=== PATIENT | female | born 1955 | race Caucasian/White ===

== ENCOUNTER 2016-10-06 11:50 | Inpatient (IN) ==
--- NOTE | 2016-10-06 08:51 | Discharge Summary ---
<Neisha Lamas Grayson - Last Filed: 10/06/16 08:49> Date of Encounter: 10/06/16 - Discharge Diagnosis (1) Painful orthopaedic hardware Priority: Primary Status: Acute (2) Status post revision of total replacement of right knee Priority: Primary Status: Acute (3) GERD (gastroesophageal reflux disease) Priority: Secondary Status: Acute (4) Anxiety Priority: Secondary Status: Acute Comments: On Klonopin 1mg, chronic pain. - Discharge Medications Home Medications: Aspirin 81 mg PO DAILY 10/06/16 [History] Aspirin Enteric Coated [Aspirin EC] 325 mg PO DAILY #21 tablet. 10/06/16 [Rx] Benztropine [Cogentin] 1 mg PO BID 10/06/16 [History] Chlorpromazine HCl 50 mg PO DAILY 10/06/16 [History] Donepezil [Aricept] 5 mg PO HS 10/06/16 [History] Esomeprazole Magnesium [Nexium] 40 mg PO DAILY 10/06/16 [History] Gabapentin [Neurontin] 400 mg PO QID 10/06/16 [History] Meloxicam 15 mg PO DAILY 10/06/16 [History] OxyCODONE Immed Rel [Roxicodone 5 MG] 5 - 10 mg PO Q6HR PRN #40 tablet 10/06/16 [Rx] Simvastatin [Zocor] 40 mg PO DAILY 10/06/16 [History] Tizanidine HCl [Zanaflex] 4 mg PO QID PRN 10/06/16 [History] lamoTRIgine [Lamotrigine] 200 mg PO DAILY 10/06/16 [History] rOPINIRole [Requip] 1 mg PO HS 10/06/16 [History] risperiDONE [Risperdal] 2 mg PO BID 10/06/16 [History] Allergies/Adverse Reactions: 3 Allergy/AdvReac Type Severity Reaction Status Date / Time Cyclobenzaprine Allergy Hives/ITCHI Verified 10/06/16 12:10 [From Flexeril] NG ketorolac [From Toradol] Allergy Hives/ITCHI Verified 10/06/16 12:10 NG Primary care physician: Lele Adamson - Patient Status Disposition: Transfer Inpatient Rehab Fac Condition: Good - Discharge Instructions Follow Up With: Lele Adamson DO [Primary Care Provider] - - Hospital Course Hospital course: Ms. Kam is a 60 year old female - Time Spent with Patient Total time spent providing and/or coordinating discharge services: <Denny Galvan - Last Filed: 10/08/16 17:24> Date of Encounter: 10/08/16 Time of Encounter: 17:23 - Discharge Diagnosis (1) Loose total knee arthroplasty Priority: Primary Status: Chronic Qualifiers: Encounter type: subsequent encounter Qualified Code(s): T84.038D - Mechanical loosening of other internal prosthetic joint, subsequent encounter; Z96.659 - Presence of unspecified artificial knee joint (2) Painful orthopaedic hardware Priority: Primary Status: Chronic (3) Status post revision of total replacement of right knee Priority: Primary Status: Acute (4) GERD (gastroesophageal reflux disease) Priority: Secondary Status: Chronic Qualifiers: Esophagitis presence: esophagitis presence not specified Qualified Code(s) : K21.9 - Gastro-esophageal reflux disease without esophagitis (5) Anxiety Priority: Secondary Status: Acute (6) Acute blood loss anemia Priority: Primary Status: Acute Primary care physician: Lele Adamson - Patient Status Functional capacity at discharge: uses cane/walker Overall status at discharge: patient is progressing back to baseline - Hospital Course Hospital course: Ms. Kam is a 60 year old female status post revision right total knee. Patient with issues with her anxiety during the hospital stay but overall did well.The patient received 3 units of packed red blood cells for acute blood loss anemia. Discharged in stable condition. Follow-up 1 week - Time Spent with Patient Total time spent providing and/or coordinating discharge services:
[2016-10-06] MEDS ORDERED: *HR* FentaNYL (PF) 100 MCG/2 ML VIAL ONE (11:58)
[2016-10-06] MEDS ORDERED: *HR* Propofol 200 MG/20 ML VIAL IVP ONE (11:58)
[2016-10-06] MEDS ORDERED: *HR* Midazolam HCl 2 MG/2 ML VIAL ONE (11:58)
[2016-10-06] MEDS ORDERED: Lidocaine -MPF 2% 2 ML VIAL ONE (11:58)
[2016-10-06] MEDS ORDERED: CeFAZolin Pre 2,000 MG/100 ML 2,000 MG/100 ML BAG IVPB ONE (12:10)
[2016-10-06] MEDS ORDERED: Albuterol 2.5 MG/3 ML NEBULIZER IH ONE ×2 (12:10→13:28)
[2016-10-06] MEDS ORDERED: Lidocaine -MPF 1% 2 ML VIAL ID ONE (12:10)
--- NOTE | 2016-10-06 12:13 | History & Physical Report ---
Date of Encounter: 10/06/16 Time of Encounter: 12:13 24 Hour HP Update - Instructions Instructions: If the History and Physical is less than 30 days old and was completed prior to A.M. admission and or procedure and has NOT been updated on calendar day of procedure please complete this update prior to performing procedure. - Update Patient reports changes in Medical Condition: No Changes in examination, assessment, or condition: No Changes in Medication: No Preop tests/diagnostics Reviewed: Yes Surgery Remains Indicated: Yes Consent for Planned Operative Procedure(s) Verified: Yes - Pre-Operative Checklist Preoperative Checklist Indicated: No Prophylactic Antibiotic Ordered: Yes Is VTE Prophylaxis Indicated?: Yes
[2016-10-06] MEDS ORDERED: Plasma-Lyte A (PH 7.4) 1,000 ML IVC SCH ×2 (12:15→13:30)
[2016-10-06] MEDS ORDERED: Bupivacaine/Clonidine Syringe 1 EACH SYRINGE ONE (12:52)
--- NOTE | 2016-10-06 12:55 | Anesthesia Evaluation PreOp ---
Date of Encounter: 10/06/16 Time of Encounter: 12:52 - Past History Planned Operation: Right total knee revision Cardiac History: Denies any Significant Hx Pulmonary History: Smoker, COPD TOOL SETTER History: Other (anxiety, traumatic brain injury) Other Medical History: GERD Anesthesia History: No Prior Anesthetic Complications Alcohol Use: none Drug use: none Medications and Allergies Aspirin 81 mg PO DAILY 10/06/16 [History] Aspirin Enteric Coated [Aspirin EC] 325 mg PO DAILY #21 tablet.dr 10/06/16 [Rx] Benztropine [Cogentin] 1 mg PO BID 10/06/16 [History] Chlorpromazine HCl 50 mg PO DAILY 10/06/16 [History] Donepezil [Aricept] 5 mg PO HS 10/06/16 [History] Esomeprazole Magnesium [Nexium] 40 mg PO DAILY 10/06/16 [History] Gabapentin [Neurontin] 400 mg PO QID 10/06/16 [History] Meloxicam [Meloxicam] 15 mg PO DAILY 10/06/16 [History] OxyCODONE Immed Rel [Roxicodone 5 MG] 5 - 10 mg PO Q6HR PRN #40 tablet 10/06/16 [Rx] Simvastatin [Zocor] 40 mg PO DAILY 10/06/16 [History] Tizanidine HCl [Zanaflex] 4 mg PO QID PRN 10/06/16 [History] lamoTRIgine [Lamotrigine] 200 mg PO DAILY 10/06/16 [History] rOPINIRole [Requip] 1 mg PO HS 10/06/16 [History] risperiDONE [Risperdal] 2 mg PO BID 10/06/16 [History] 3 Allergy/AdvReac Type Severity Reaction Status Date / Time Cyclobenzaprine Allergy Hives/ITCHI Verified 10/06/16 12:10 [From Flexeril] NG ketorolac [From Toradol] Allergy Hives/ITCHI Verified 10/06/16 12:10 NG - Meds/Allergy Pre-op Review Medications Reviewed: Yes Allergies Reviewed: Yes Beta Blockers on Current Med List: No Anesthesia Results - Labs Last Vital Signs Temp 98.1 F 10/06/16 12:13 Pulse 71 10/06/16 12:13 Resp 18 10/06/16 12:13 BP 121/78 10/06/16 12:13 Pulse Ox 100 10/06/16 12:13 - Imaging EKG: report reviewed, image reviewed (SR) Anesthesia Exam Last Vital Signs Temp 98.1 F 10/06/16 12:13 Pulse 71 10/06/16 12:13 Resp 18 10/06/16 12:13 BP 121/78 10/06/16 12:13 Pulse Ox 100 10/06/16 12:13 Weight: 74 kg NPO (# of Hours): >> 8 hrs - HEENT Pupil (Motor): Pupils equal, EOMI Mallampati: III Teeth: Poor dentition Oral Opening: Greater than 3 - TOOL SETTER TOOL SETTER Motor: Deficit LLE - Cardiac Rhythm: Regular Murmur: None - Pulmonary Breath Sounds: bilateral Clear Respiratory Effort: Symmetrical Anesthesia Assess/Plan ASA Score: 2 Modified Remer Scale for Level of Consciousness: Cooperative, oriented, and tranquil Anesthetic Plan: General, Regional Monitoring Plan: Standard Monitors Recovery Plan: PACU
[2016-10-06] MEDS ORDERED: Ondansetron 4 MG/2 ML VIAL ONE (13:25)
[2016-10-06] MEDS ORDERED: Dexamethasone 4 MG/ML VIAL ONE (13:25)
[2016-10-06] MEDS ORDERED: EPHEDrine 50 MG/ML VIAL ONE (13:26)
[2016-10-06] MEDS ORDERED: *HR* Labetalol 20 MG/4 ML SYRINGE IVP PRN (13:28)
[2016-10-06] MEDS ORDERED: *HR* HYDROmorphone (PF) 1 MG/ML SYRINGE IVP PRN (13:28)
[2016-10-06] MEDS ORDERED: Naloxone 0.4 MG/ML INJ IVP PRN ×2 (13:28→16:38)
[2016-10-06] MEDS ORDERED: *HR* Meperidine 25 MG/ML SYRINGE IVP PRN (13:28)
[2016-10-06] MEDS ORDERED: Ondansetron 4 MG/2 ML VIAL IVP ONE (13:28)
[2016-10-06] MEDS ORDERED: *HR* HYDROmorphone 2 MG/ML SYRINGE ONE (13:37)
--- NOTE | 2016-10-06 13:37 | Anesthesia Procedures ---
Date of Encounter: 10/06/16 Time of Encounter: 13:35 Procedures: Anesthesia - Nerve Block Procedure Date: 10/06/16 Time: 13:35 Surgical Procedure: right tka revision Checklist: Correct Patient Identifier, Correct procedure, History checked Correct side: Right Blood Thinner: No Monitor Applied: EKG, BP, Pulse Oximetry Supplemental Oxygen via Nasal Cannula (L/min): 2 Sedation: Versed (mg): 2 Sedation: Fentanyl (mcg): 100 Indication: Post Op Analgesia (request per dr harrington for post op pain control) Pre-op Neuro Deficits: No Block Type: Femoral, Other (ipack) Catheter placed: No Sterile Technique: Yes Ultrasound used: Yes Anatomy identified: Yes Visual spread of Local: Yes Neuro Stimulation: Yes Nerve Stimulator Range: >0.4 - 0.6 mA Blood on Needle Aspiration: No Smooth Injection of Local: Yes Pain with Injection of Local: No Prep: Chlorhexadine Needle: 22 x 50 mm Stimuplex, 21 x 100 mm Stimuplex Local: 0.25% Bupivicaine w/Clonidine 20 mcg/cc Volume (cc): 60 Number of Attempts: 1 Complications: None/effective block Vitals: Vital Signs/O2 Sat/Glucose, Most Current Temp Pulse Resp BP Pulse Ox 10/06/16 13:11 59 18 127/71 98 10/06/16 12:13 98.1 F 71 18 121/78 100 10/06/16 12:11 98.1 F 71 18 121/78 100 Comments: pt tolerated procedure well. no complications. vss.
--- NOTE | 2016-10-06 14:32 | Orthopedic Operative Note ---
Date of procedure: 10/06/16 Pre-op diagnosis: Aseptic loosening right total knee Post-op diagnosis: same Procedure: Procedure: Right revision total knee Estimated blood loss: 600 Hardware: Metal and polyethylene replacement. Biomet SSK femur: 60, 14 x 1 20 Tibia: 67, medial and lateral 10 mm augments, 12 x 40 stem area Constrained Thuy: 22 Exam Under anesthesia: Full flexion and extension significant varus valgus instability. Procedural Notes: Patient's tibia was grossly loose. Operative procedure: The patient was brought to the operating room and placed on the operating room table. After general anesthesia was administered the operative knee was examined. Findings were noted in the exam under anesthesia. The operative extremity was prepped and draped in sterile surgical fashion. The patient received IV antibiotics prior to skin incision. A standard midline incision was made centered over the patella through the old incision. The incision was made through the skin and subcutaneous tissue. A medial parapatellar tendon approach was performed. Care was taken to preserve tissue along the medial aspect of the patella. And to protect the patella tendon. The deep MCL was released off the medial tibia. The infra patella fat pad was excised. Fluid was encountered this was normal joint fluid, Cultures were obtained and gram . The knee was brought into flexion the poly-was removed. The interface between the patient's femoral component and distal femur were disrupted with a osteotome and oscillating saw. Femoral component was removed removed without significant bone loss. Attention was then turned to the tibial component. The same technique was used to remove the tibial component by disrupting the interface between the patient's tibial component and the patients proximal tibia. The tibial component was loose, was removed without significant bone loss. The tibia was sized to a 67 it was reamed up to a 12 x 40 this was after the tibia was recut off the intramedullary ishan. Required 10 mm augments medial and lateral. Trial had good fit and fixation. The femur was sized to a 60, was reamed up to a 14 x 120 The finishing guide was seated and the box cut was made. The trial had good fit and fixation. Both trial components were seated and the 22 constrained Thuy was seated and secured. The knee had full flexion and full extension with no instability. Patella had excellent patella tracking. The trial components were removed. The knee sat for 2 minutes with a Betadine saline solution. It was irrigated out with 2 L of pulse irrigation. The components were assembled on the back table, the tibia cemented first followed by the femur. The 22 constrained liner was seated and secure. The knee was brought to full extension while the cement hardened. The patella was cemented and held in place with patellar holding clamp. After the cement hardened the knee was irrigated out again. The knee was closed by the PA. The extensor mechanism was closed with a running #2 Fiberwire suture and a running #2 PDS suture. The deep tissue was irrigated and closed deep with #1 PDS suture superficially with 0 PDS suture. The skin was closed with skin elizabeth. The patient was placed in a sterile dressing and postoperative brace. They were extubated and transferred to recovery room in stable condition. Anesthesia: NELSON Surgeon: Denny Galvan Making Line Worker: Neisha Lamas Condition: stable Disposition: PACU
[2016-10-06] MEDS ORDERED: Acetaminophen IV 1,000 MG/100 ML INFUS..BTL IVPB ONE (15:23)
[2016-10-06 15:25] LABS: Hematocrit 29.3 % (35.3-44.9); Hemoglobin 9.8 g/dL (11.5-15.4)
--- NOTE | 2016-10-06 16:18 | Anesthesia Evaluation Post Op ---
Date of Encounter: 10/06/16 Time of Encounter: 16:00 - Vital Signs Vital Signs: vss fluid bolus ordered. - Lungs Lungs: Clear Ascult./Percussion - Airway Airway: Non-obstructed - Cardiovascular Baseline Rhythm - Mental Status Mental Status: Asleep with brisk response to light stimulation - Pain Pain Scale used: Nidia (Faces) (no apparent distress.) - Nausea Vomiting Nausea Vomiting: Not Present - Discharge PostOp Status: Transfer Patient to floor
[2016-10-06] MEDS ORDERED: Ringers Solution, Lactated 1,000 ML IVC SCH (16:38)
[2016-10-06] MEDS ORDERED: Sennosides 8.6 MG TABLET PO PRN (16:38)
[2016-10-06] MEDS ORDERED: Ondansetron 4 MG/2 ML VIAL IVP PRN (16:38)
[2016-10-06] MEDS ORDERED: tiZANidine 4 MG TABLET PO PRN (16:38)
[2016-10-06] MEDS ORDERED: Temazepam 15 MG CAPSULE PO PRN (16:38)
[2016-10-06] MEDS ORDERED: MOM Conc 10 ML UD.LIQ PO PRN (16:38)
[2016-10-06] MEDS ORDERED: *HR* OxyCODONE Immed Rel 5 MG TABLET PO PRN (16:38)
[2016-10-06] MEDS: Gabapentin 400 MG CAPSULE PO SCH ×2 (17:25→21:10)
[2016-10-06] MEDS: *HR* Enoxaparin 30 MG/0.3 ML SYRINGE SQ SCH (17:25)
[2016-10-06] MEDS: ceFAZolin 2,000 MG in D5% in Water 100 ML IVPB SCH (17:26)
[2016-10-06] MEDS ORDERED: *HR* Enoxaparin 30 MG/0.3 ML SYRINGE SQ SCH (18:00)
[2016-10-06] MEDS: rOPINIRole 1 MG TABLET PO SCH (21:09)
[2016-10-07] MEDS: *HR* OxyCODONE Immed Rel 5 MG TABLET PO PRN ×5 (00:09→23:14)
[2016-10-07] MEDS: ceFAZolin 2,000 MG in D5% in Water 100 ML IVPB SCH (00:10)
[2016-10-07] MEDS: risperiDONE 1 MG TABLET PO SCH ×3 (00:10→20:14)
[2016-10-07] MEDS: *HR* Enoxaparin 30 MG/0.3 ML SYRINGE SQ SCH ×2 (04:50→18:34)
[2016-10-07 05:14] LABS: Hematocrit 24.8 % (35.3-44.9)
[2016-10-07 05:15] LABS: Hemoglobin 8.2 g/dL (11.5-15.4)
[2016-10-07 05:48] LABS: BUN/Creatinine Ratio 16 (6-26); Blood Urea Nitrogen 13 mg/dL (7-20); Calcium 8.6 mg/dL (8.6-10.8); Carbon Dioxide 26 mEq/L (19-29); Chloride 105 mEq/L (98-109); Glucose 122 mg/dL (70-99); Osmolality,Calculated 287 (280-300); Potassium 4.1 mEq/L (3.5-4.5); Sodium 138 mEq/L (136-145); eGFR For African Americans > 60 (> 60); eGFR For Non-African Americans > 60 (> 60)
--- NOTE | 2016-10-07 06:56 | Orthopedics Progress Note ---
Date of Encounter: 10/07/16 Time of Encounter: 06:55 - Assessment and Plan (1) Loose total knee arthroplasty Current Visit: Yes Status: Chronic Qualifiers: Encounter type: subsequent encounter Qualified Code(s): T84.038D - Mechanical loosening of other internal prosthetic joint, subsequent encounter; Z96.659 - Presence of unspecified artificial knee joint (2) Painful orthopaedic hardware Current Visit: Yes Status: Chronic (3) Status post revision of total replacement of right knee Current Visit: Yes Status: Acute (4) GERD (gastroesophageal reflux disease) Current Visit: Yes Status: Chronic Qualifiers: Esophagitis presence: esophagitis presence not specified Qualified Code(s) : K21.9 - Gastro-esophageal reflux disease without esophagitis (5) Anxiety Current Visit: Yes Status: Acute Subjective Interval history: Patient was seen this morning doing well without complaints. Afebrile vital signs stable. Operative extremity: Neurovascularly intact Dressing clean dry and intact Calves nontender Assessment and plan: Continue with postoperative care Hematocrit 24 transfuse 2 units Objective Vital signs: Vital Signs Temp Pulse Resp BP Pulse Ox 10/07/16 05:32 98.0 F 92 17 108/75 98 10/07/16 04:16 97 10/07/16 00:55 97.6 F 93 18 101/71 97 10/06/16 20:25 98.5 F 95 17 94/60 99 10/06/16 18:05 97.3 F L 103 12 98/59 99 10/06/16 17:30 97.7 F 99 15 94/42 99 10/06/16 16:52 97.4 F L 104 14 97/67 97 10/06/16 16:26 95 10/06/16 16:16 97.8 F 105 14 96/64 97 10/06/16 15:56 97.2 F L 108 16 102/59 95 10/06/16 15:46 109 20 99/61 95 10/06/16 15:36 97.0 F L 109 16 92/64 98 10/06/16 15:27 97.1 F L 111 18 89/59 95 10/06/16 15:18 111 14 89/62 94 10/06/16 15:07 111 14 80/63 95 10/06/16 14:59 97 F L 118 16 106/67 100 10/06/16 13:11 59 18 127/71 98 10/06/16 12:13 98.1 F 71 18 121/78 100 10/06/16 12:11 98.1 F 71 18 121/78 100 Intake and Output 10/06/16 10/06/16 10/07/16 15:59 23:59 07:59 Intake Total 200 / 200 100 / 100 50 / 50 Output Total 600 / 600 400 / 400 Balance -400 / -400 100 / 100 -350 / -350 Intake: IV Fluids 200 / 200 100 / 100 Ofirmev 1,000 mg/100 ml 1 100 / 100 ,000 mg In 100 ml @ 400 mls/hr IVPB ONCE ONE Rx#: [id number] Ancef Premix 2,000 MG/100 100 / 100 ML 2,000 mg In 100 ml @ 200 mls/hr IVPB PREOP ONE Rx#:[id number] Ancef 2,000 MG In 100 / 100 Dextrose 5% 100 ML @ 200 mls/hr IVPB Q8HR RADHA Rx#: [id number] Oral 0 / 0 50 / 50 Output: Urine 400 / 400 Estimated Blood Loss 600 / 600 Other: Weight 74.389 kg - Labs CBC & BMP: 10/07/16 04:37 10/07/16 04:37 Labs: Abnormal lab results Hgb 8.2 g/dL (11.5-15.4) L D 10/07/16 04:37 Hct 24.8 % (35.3-44.9) L 10/07/16 04:37 Glucose 122 mg/dL (70-99) H 10/07/16 04:37 - VTE Documentation of Mechanical Device: Venous foot pump, device Consult Discharge Plan - Plan Referrals: Lele Adamson DO [Primary Care Provider] -
[2016-10-07] MEDS ORDERED: Furosemide 20 MG/2 ML VIAL IVP ONE (07:26)
[2016-10-07] MEDS: Aspirin 81 MG TAB.CHEW PO SCH (08:05)
[2016-10-07] MEDS: lamoTRIgine 100 MG TABLET PO SCH (08:07)
[2016-10-07] MEDS: chlorproMAZINE 25 MG TABLET PO SCH (08:07)
[2016-10-07] MEDS: Gabapentin 400 MG CAPSULE PO SCH ×4 (08:09→22:26)
[2016-10-07] MEDS: *HR* HYDROmorphone (PF) 1 MG/ML SYRINGE IVP PRN (09:28)
[2016-10-07] MEDS: 0.9 % Sodium Chloride 250 ML IVC SCH ×2 (10:30→16:52)
--- NOTE | 2016-10-07 12:35 | Event Note ---
Date of Encounter: 10/07/16 Time of Encounter: 12:33 PCR - Right TKR - Revision, Locked in Tscope brace, no knee rom - POD#1 Tranfused 2 units 10/07/16 Patient seen at bedside. Pain control: Lidoderm patch added, allergy to flexeril and Toradol Participating in PT. All questions and concerns addressed. Educated on use of incentive spirometer, ambulation, and hydration. Patient educated on post-operative restrictions and care. Addressed: May add Tizanidine if needed. D/C plan:. HH
--- NOTE | 2016-10-07 12:37 | Physician Discharge Referral ---
Home Health/Hosp Referral Info Transfer to: Home Health Provider in Charge Post Discharge: PCP - Diagnosis (1) Painful orthopaedic hardware Priority: Primary Status: Chronic (2) Status post revision of total replacement of right knee Priority: Primary Status: Acute (3) GERD (gastroesophageal reflux disease) Priority: Secondary Status: Chronic (4) Anxiety Priority: Secondary Status: Acute (5) Loose total knee arthroplasty Priority: Primary Status: Chronic (6) Acute blood loss anemia Priority: Primary Status: Acute - Respiratory Orders None Smoking Cessation: Smoking cessation has been advised. For more information, call the [place] Tobacco Quit Line at 8-650-ONWB-NOW. - Diet/Nutrition Diet/Nutrition Orders: Regular - Activity Activity Orders: Up ad lakisha, Ambulate - Services Needed Following services are medically necessary services: Nursing, Home Health Aide, Physical Therapy, Occupational Therapy Home Care Orders: Right TKR - Revision, Locked in Tscope brace, no knee rom - POD#1 Tranfused 2 units 10/07/16 Opsite dressing, leave intact until first post-operative visit. If dressing becomes >50% saturated, contact office, remove dressing and place appropriate dressing in its place. Do not allow for dressing to get wet. [place] in place, plan to remove at post-operative day #14-16. Total Joint Precautions x 6 weeks Apply cold therapy wrap 3-6x/day for 20 minutes at a time. Encourage ambulation throughout the day Use Incentive spirometer 10x/hour. Elevate affected extremity above heart as tolerated. Brace: TSCOPE brace at all times. NO KNEE ROM, WBAT. - Transfer Medications Home Medications: Aspirin 81 mg PO DAILY 10/06/16 [History] Aspirin Enteric Coated [Aspirin EC] 325 mg PO DAILY #21 tablet. 10/06/16 [Rx] Benztropine [Cogentin] 1 mg PO BID 10/06/16 [History] Chlorpromazine HCl 50 mg PO DAILY 10/06/16 [History] Donepezil [Aricept] 5 mg PO HS 10/06/16 [History] Esomeprazole Magnesium [Nexium] 40 mg PO DAILY 10/06/16 [History] Gabapentin [Neurontin] 400 mg PO QID 10/06/16 [History] Meloxicam 15 mg PO DAILY 10/06/16 [History] OxyCODONE Immed Rel [Roxicodone 5 MG] 5 - 10 mg PO Q6HR PRN #40 tablet 10/06/16 [Rx] Simvastatin [Zocor] 40 mg PO DAILY 10/06/16 [History] Tizanidine HCl [Zanaflex] 4 mg PO QID PRN 10/06/16 [History] lamoTRIgine [Lamotrigine] 200 mg PO DAILY 10/06/16 [History] rOPINIRole [Requip] 1 mg PO HS 10/06/16 [History] risperiDONE [Risperdal] 2 mg PO BID 10/06/16 [History] Allergies/Adverse Reactions: 3 Allergy/AdvReac Type Severity Reaction Status Date / Time Cyclobenzaprine Allergy Hives/ITCHI Verified 10/06/16 12:10 [From Flexeril] NG ketorolac [From Toradol] Allergy Hives/ITCHI Verified 10/06/16 12:10 NG Certification: Further, I certify that my clinical findings support that this patient is homebound (i.e. absences from home require considerable and taxing effort and are for medical reasons or episcopal services or infrequently or short duration when for other reasons) because: Homebound Reason: Post-surgery restriction and or conditions limit ability to leave home Attestation: My signature below is to certify that this patient is under my care and that I, or nurse practitioner, or a physician's funeral assistant working with me, has a face-to -face encounter with this patient.
[2016-10-07] MEDS ORDERED: Acetaminophen IV 1,000 MG/100 ML INFUS..BTL IVPB PRN (17:51)
[2016-10-07] MEDS: rOPINIRole 1 MG TABLET PO SCH (20:13)
[2016-10-07 21:50] LABS: Hematocrit 26.2 % (35.3-44.9); Hemoglobin 9.1 g/dL (11.5-15.4)
[2016-10-08] MEDS: Acetaminophen IV 1,000 MG/100 ML INFUS..BTL IVPB PRN ×2 (02:20→10:33)
[2016-10-08] MEDS: *HR* OxyCODONE Immed Rel 5 MG TABLET PO PRN ×3 (04:23→21:12)
[2016-10-08 06:06] LABS: Hematocrit 26.4 % (35.3-44.9)
[2016-10-08] MEDS: *HR* Enoxaparin 30 MG/0.3 ML SYRINGE SQ SCH ×2 (06:13→19:16)
[2016-10-08 06:24] LABS: BUN/Creatinine Ratio 15 (6-26); Blood Urea Nitrogen 9 mg/dL (7-20); Calcium 8.4 mg/dL (8.6-10.8); Carbon Dioxide 24 mEq/L (19-29); Chloride 107 mEq/L (98-109); Glucose 110 mg/dL (70-99); Osmolality,Calculated 285 (280-300); Sodium 138 mEq/L (136-145); eGFR For African Americans > 60 (> 60); eGFR For Non-African Americans > 60 (> 60)
[2016-10-08] MEDS ORDERED: Furosemide 20 MG/2 ML VIAL IVP SCH (06:31)
--- NOTE | 2016-10-08 06:31 | Orthopedics Progress Note ---
Date of Encounter: 10/08/16 Time of Encounter: 06:31 - Assessment and Plan (1) Loose total knee arthroplasty Current Visit: Yes Status: Chronic Qualifiers: Encounter type: subsequent encounter Qualified Code(s): T84.038D - Mechanical loosening of other internal prosthetic joint, subsequent encounter; Z96.659 - Presence of unspecified artificial knee joint (2) Painful orthopaedic hardware Current Visit: Yes Status: Chronic (3) Status post revision of total replacement of right knee Current Visit: Yes Status: Acute (4) GERD (gastroesophageal reflux disease) Current Visit: Yes Status: Chronic Qualifiers: Esophagitis presence: esophagitis presence not specified Qualified Code(s) : K21.9 - Gastro-esophageal reflux disease without esophagitis (5) Anxiety Current Visit: Yes Status: Acute (6) Acute blood loss anemia Current Visit: Yes Status: Acute Subjective Interval history: Patient was seen this morning complains of pain. Afebrile vital signs stable. Operative extremity: Neurovascularly intact Dressing clean dry and intact Calves nontender Assessment and plan: Continue with postoperative care Hematocrit 26 transfuse 1 more unit. Objective Vital signs: Vital Signs Temp Pulse Resp BP Pulse Ox 10/08/16 04:38 99.4 F 113 16 124/79 94 10/07/16 22:59 99.2 F 112 16 131/71 96 10/07/16 19:34 98.4 F 112 18 122/70 98 10/07/16 17:07 98.7 F 120 12 115/70 92 10/07/16 16:52 99.2 F 111 11 118/78 10/07/16 16:15 98.9 F 116 17 106/71 95 10/07/16 14:41 98.8 F 102 11 107/70 97 10/07/16 11:44 103 16 104/73 96 10/07/16 11:38 97.9 F 103 16 104/73 96 10/07/16 10:30 98.2 F 104 10 96/69 95 10/07/16 07:14 97.8 F 93 18 108/73 97 Intake and Output 10/07/16 10/07/16 10/08/16 15:59 23:59 07:59 Intake Total 616 / 616 0 / 0 350 / 350 Output Total 0 / 0 Balance 616 / 616 0 / 0 350 / 350 Intake: IV Fluids 50 / 50 0.9 % Sodium Chloride 250 50 / 50 ML @ 25 mls/hr IVC .Q10H RADHA Rx#:[id number] Oral 240 / 240 Blood Product 326 / 326 0 / 0 350 / 350 Rbcs Leuko Poor As-1 326 / 326 Unit [id number] Rbcs Leuko Poor As-1 0 / 0 350 / 350 Unit [id number] Output: Urine 0 / 0 Other: Meal Lunch Percent of Meal Consumed 60% # Voids 1 Weight 77.7 kg Patient Weight 10/08/16 23:59 Weight 77.7 kg - Labs CBC & BMP: 10/08/16 05:57 10/08/16 05:57 Labs: Abnormal lab results Hgb 9.0 g/dL (11.5-15.4) L 10/08/16 05:57 Hct 26.4 % (35.3-44.9) L 10/08/16 05:57 Glucose 110 mg/dL (70-99) H 10/08/16 05:57 Calcium 8.4 mg/dL (8.6-10.8) L 10/08/16 05:57 - VTE Documentation of Mechanical Device: Venous foot pump, device Consult Discharge Plan - Plan Referrals: Lele Adamson DO [Primary Care Provider] -
[2016-10-08] MEDS: *HR* HYDROmorphone (PF) 1 MG/ML SYRINGE IVP PRN (06:44)
[2016-10-08] MEDS: risperiDONE 1 MG TABLET PO SCH ×2 (09:24→21:13)
[2016-10-08] MEDS: lamoTRIgine 100 MG TABLET PO SCH (09:24)
[2016-10-08] MEDS: Gabapentin 400 MG CAPSULE PO SCH ×4 (09:24→21:13)
[2016-10-08] MEDS: Aspirin 81 MG TAB.CHEW PO SCH (09:25)
[2016-10-08] MEDS: chlorproMAZINE 25 MG TABLET PO SCH (09:25)
[2016-10-08] MEDS ORDERED: Naloxone 0.4 MG/ML INJ IVP ONE (15:14)
[2016-10-08] MEDS: rOPINIRole 1 MG TABLET PO SCH (21:13)
[2016-10-09] MEDS: *HR* OxyCODONE Immed Rel 5 MG TABLET PO PRN (02:39)
[2016-10-09] MEDS: *HR* Enoxaparin 30 MG/0.3 ML SYRINGE SQ SCH (05:09)
[2016-10-09] MEDS: *HR* HYDROmorphone (PF) 1 MG/ML SYRINGE IVP PRN (06:53)
--- NOTE | 2016-10-09 09:15 | Event Note ---
Date of Encounter: 10/08/16 Time of Encounter: 12:00 PCR - Right TKR - Revision, Locked in Tscope brace, no knee rom - POD#2 Tranfused 2 units 10/07/16 Patient seen at bedside. Very somnolent - able to be aroused. Pain control: Lidoderm patch and pain medication, allergy to flexeril and Toradol Participating in PT. All questions and concerns addressed. Patient and brother express concern regarding going home secondary to having 3 days of her at home meds left and difficulty reaching PCP. 2 day supply of scripts provided. Educated on use of incentive spirometer, ambulation, and hydration. Patient educated on post-operative restrictions and care. Continue in Tscope locked no ROM Addressed: May add Tizanidine if needed. D/C plan:. [facility]
--- NOTE | 2016-10-09 09:25 | Physician Discharge Referral ---
[facility] Referral Info [facility] Provider in Charge: Dr. Denny Galvan Institutional Level of Care: Skilled - Diagnosis (1) Status post revision of total replacement of right knee Priority: Primary Status: Acute (2) GERD (gastroesophageal reflux disease) Priority: Secondary Status: Chronic (3) Anxiety Priority: Secondary Status: Acute (4) Loose total knee arthroplasty Priority: Secondary Status: Chronic (5) Acute blood loss anemia Priority: Secondary Status: Acute (6) History of traumatic brain injury Priority: Secondary Status: Chronic Expected Duration of Placement: less than 30 days Prognosis: Good Aware of Diagnosis: Patient Aware of Prognosis: Patient - Transfer Medications Home Medications: Aspirin 81 mg PO DAILY 10/06/16 [History] Aspirin Enteric Coated [Aspirin EC] 325 mg PO DAILY #21 tablet. 10/06/16 [Rx] Benztropine [Cogentin] 1 mg PO BID 10/06/16 [History] Chlorpromazine HCl 50 mg PO DAILY 10/06/16 [History] Donepezil [Aricept] 5 mg PO HS 10/06/16 [History] Esomeprazole Magnesium [Nexium] 40 mg PO DAILY 10/06/16 [History] Gabapentin [Neurontin] 400 mg PO QID 10/06/16 [History] Meloxicam 15 mg PO DAILY 10/06/16 [History] OxyCODONE Immed Rel [Roxicodone 5 MG] 5 - 10 mg PO Q6HR PRN #40 tablet 10/06/16 [Rx] Simvastatin [Zocor] 40 mg PO DAILY 10/06/16 [History] Tizanidine HCl [Zanaflex] 4 mg PO QID PRN 10/06/16 [History] lamoTRIgine [Lamotrigine] 200 mg PO DAILY 10/06/16 [History] rOPINIRole [Requip] 1 mg PO HS 10/06/16 [History] risperiDONE [Risperdal] 2 mg PO BID 10/06/16 [History] Allergies/Adverse Reactions: 3 Allergy/AdvReac Type Severity Reaction Status Date / Time Cyclobenzaprine Allergy Hives/ITCHI Verified 10/06/16 12:10 [From Flexeril] NG ketorolac [From Toradol] Allergy Hives/ITCHI Verified 10/06/16 12:10 NG - Respiratory Orders Smoking Cessation: Smoking cessation has been advised. For more information, call the [place] Tobacco Quit Line at 8-077-HTMJ-NOW. - Ancillary Orders May use pressure relief devices daily prn, May go on ROSALIO w/family/respon republican w /meds at nurse discretion PRN, May consult with Dentist, Jailor, Pier Worker PRN - Mobility Orders Chair, Ambulate (with walker) - Rehabiliation Orders Rehab Potential: Good Rehab Orders: Evaluation for Physical Therapy, Evaluation for Occupational Therapy Other: Patient to continue in LOCKED EXTENSION TSCOPE BRACE at all times until released by [facility]. May remove brace for bathing however knee to be kept in extension no weight bearing while out of brace. Total Knee replacement Precautions x 6 weeks Apply cold therapy wrap 3-6x/day for 20 minutes at a time. Encourage ambulation throughout the day and incentive spirometer 10x/hour. Elevate affected extremity above heart as tolerated. - Treatments Skin tear care topically daily PRN per policy List/Other: Opsite dressing, leave intact until first post-operative visit. If dressing becomes >50% saturated, contact office, remove dressing and place appropriate dressing in its place. Do not allow for dressing to get wet. [place] in place, plan to remove at post-operative day #14-16. - Diet Orders Regular CERTIFICATION: I certify that the transfer of the above named patient to an Extended Care Facility is necessary for the continuing treatment of the diagnosis listed. The above information is true and accurate reflection of patient's current condition. Confidential - Redisclosure prohibited without a patient's written consent.
[2016-10-09] MEDS: chlorproMAZINE 25 MG TABLET PO SCH (09:39)
[2016-10-09] MEDS: risperiDONE 1 MG TABLET PO SCH (09:40)
[2016-10-09] MEDS: lamoTRIgine 100 MG TABLET PO SCH (09:40)
[2016-10-09] MEDS: Aspirin 81 MG TAB.CHEW PO SCH (09:40)
[2016-10-09] MEDS: Gabapentin 400 MG CAPSULE PO SCH ×2 (09:40→13:00)
--- NOTE | 2016-10-09 09:58 | Orthopedics Progress Note ---
Date of Encounter: 10/09/16 Time of Encounter: 09:57 Subjective Interval history: S: Expected postoperative pain in the right knee. No new complaints. O: Afebrile and her vital signs are stable. Right knee dressing is intact without drainage. [place] nontender. Neurovascularly intact A: Post right revision total knee arthroplasty P: Reason postoperative care [facility]ticip[facility]. Objective Vital signs: Vital Signs Temp Pulse Resp BP Pulse Ox 10/09/16 07:00 98.5 F 104 18 144/87 96 10/09/16 03:45 98.6 F 108 16 147/82 95 10/09/16 00:57 98.6 F 118 14 127/85 96 10/08/16 21:06 98.8 F 105 17 131/78 96 10/08/16 17:00 98.5 F 101 14 115/74 95 10/08/16 16:45 106 14 116/74 94 10/08/16 16:30 102 14 114/76 94 10/08/16 16:15 100 13 122/76 92 10/08/16 16:00 97 13 121/77 95 10/08/16 15:45 92 12 116/77 97 10/08/16 14:45 98.3 F 89 12 103/67 10/08/16 14:29 98.6 F 12 106/70 94 10/08/16 10:24 98.9 F 104 20 121/76 96 Intake and Output 10/08/16 10/09/16 10/09/16 23:59 07:59 15:59 Intake Total 360 / 360 500 / 500 Output Total 0 / 0 500 / 500 Balance 360 / 360 0 / 0 Intake: Oral 60 / 60 500 / 500 Blood Product 300 / 300 Rbcs Leuko Poor As-3 Ph 300 / 300 Unit [id number] Output: Urine 0 / 0 500 / 500 Other: # Voids 1 1 Weight 77.2 kg Patient Weight 10/09/16 23:59 Weight 77.2 kg - Labs CBC & BMP: 10/08/16 05:57 10/08/16 05:57 Labs: Abnormal lab results Hgb 9.0 g/dL (11.5-15.4) L 10/08/16 05:57 Hct 26.4 % (35.3-44.9) L 10/08/16 05:57 Glucose 110 mg/dL (70-99) H 10/08/16 05:57 Calcium 8.4 mg/dL (8.6-10.8) L 10/08/16 05:57 - VTE Documentation of Mechanical Device: Venous foot pump, device Consult Discharge Plan - Plan Referrals: Lele Adamson DO [Primary Care Provider] -
[2016-10-09 11:35] VITALS: BP 137/86
== END 2016-10-09 16:25 | disposition home health service (06) | DRG 467 ==
LOC: SAMDAY 11:50 → 3NENU 16:16
PROVIDERS: ADMIT Orthopaedic Surgery; ATTEND Orthopaedic Surgery

== ENCOUNTER 2020-10-10 20:21 | Inpatient (IN) ==
[2020-10-10] MEDS ORDERED: Naloxone 0.4 MG/ML INJ IVP PRN (22:42)
[2020-10-10] MEDS ORDERED: Ondansetron 4 MG/2 ML VIAL IVP PRN (22:42)
[2020-10-10 23:47] LABS: INR 1.2; Prothrombin Time 13.5 Seconds (9.4-12.1)
[2020-10-11] MEDS: Acetaminophen 325 MG TABLET PO PRN
[2020-10-11] MEDS ORDERED: 0.9 % Sodium Chloride 500 ML IVC PRN (00:10)
[2020-10-11] MEDS: Pantoprazole 40 MG in 0.9 % Sodium Chloride Mini Bag 100 ML IVC SCH ×3 (00:13→10:22)
[2020-10-11] MEDS: *HR* LORazepam 2 MG/ML VIAL IVP PRN ×2 (00:34→15:15)
[2020-10-11] MEDS: Morphine Sulfate 2 MG/ML SYRINGE IVP PRN ×2 (00:35→13:34)
[2020-10-11 01:03] LABS: Basophils # 0.1 K/mcL (0.0-0.2); Basophils % 1.1 %; Eosinophils # 0.1 K/mcL (0.0-0.6); Eosinophils % 2.1 %; Hematocrit 32.1 % (35.3-44.9); Hemoglobin 9.9 g/dL (11.5-15.4); Immature Granulocytes % 0.3 % (0-4); Lymphocytes # 1.2 K/mcL (0.6-4.6); Mean Corpuscular HGB Conc 30.8 g/dL (31.6-35.5); Mean Corpuscular Hemoglobin 24.4 pg (28.0-33.3); Mean Corpuscular Volume 79.1 fL (83.0-100.0); Mean Platelet Volume 9.4 fL (9.4-12.4); Monocytes # 0.6 K/mcL (0.0-1.3); Monocytes % 9.9 %; Neutrophils # 4.2 K/mcL (1.6-8.9); Platelet Count 197 K/mcL (140-400); Red Blood Count 4.06 M/mcL (3.82-4.97); Red Cell Distribution Width 17.4 % (11.5-14.5); Segmented Neutrophils % 67.6 %; White Blood Count 6.3 K/mcL (4.3-11.1)
[2020-10-11 01:35] LABS: Alanine Aminotransferase 17 Units/L (7-52); Albumin 3.2 g/dL (3.5-5.7); Albumin/Globulin Ratio 1.1 (1.1-2.2); Alkaline Phosphatase 264 Units/L (34-104); Aspartate Amino Transferase 21 Units/L (13-39); BUN/Creatinine Ratio 58 (6-26); Bilirubin,Direct 0.2 mg/dL (0.0-0.2); Bilirubin,Indirect 0.5 mg/dL (0.0-1.0); Bilirubin,Total 0.7 mg/dL (0.3-1.0); Blood Urea Nitrogen 38 mg/dL (8-23); Calcium 8.6 mg/dL (8.6-10.3); Carbon Dioxide 22 mEq/L (23-29); Chloride 103 mEq/L (98-107); Globulin 2.9 g/dL (2.4-3.5); Glucose 74 mg/dL (70-105); Magnesium 1.9 mg/dL (1.6-2.6); Osmolality,Calculated 288 (280-300); Potassium 3.2 mEq/L (3.5-5.1); Sodium 135 mEq/L (136-145); Total Protein 6.1 g/dL (6.4-8.9); eGFR For African Americans > 60 (> 60); eGFR For Non-African Americans > 60 (> 60)
[2020-10-11 02:39] LABS: Bacteria,Urine Few per hpf (None-Few); Bilirubin,Urine Negative (Negative); Blood,Urine Negative (Negative); Clarity,Urine Turbid (Clear); Color,Urine Yellow (Yellow); Glucose,Urine (UA) Normal (Normal); Ketones,Urine Trace mg/dL (Negative); Leukocyte Esterase,Urine Small (Negative); Mucus,Urine Many per lpf (None-Few); Nitrite,Urine Negative (Negative); PH,Urine 6.5 pH Units (5.0-8.0); Protein,Urine 50 mg/dL (Neg-Trace); Specific Gravity,Urine > 1.030 (1.010-1.025); Squamous Epithelial Cell,Urine Few per hpf (None-Few); Urobilinogen,Urine Normal (Normal); WBC,Urine 15-30 per hpf (0-3)
[2020-10-11] MEDS ORDERED: Potassium Chloride 40 MEQ, Lidocaine 1% 2 ML in 0.9 % Sodium Chloride 500 ML IVPB ONE (03:08)
[2020-10-11 04:02] LABS: Hepatitis B Core IgM Nonreactive (Nonreactive)
[2020-10-11 04:03] LABS: Hepatitis A Antibody IgM Nonreactive (Nonreactive); Hepatitis C Virus Antibody Nonreactive (Nonreactive)
[2020-10-11] MEDS ORDERED: Octreotide 400 MCG in 0.9 % Sodium Chloride 100 ML IVC SCH (08:15)
[2020-10-11] MEDS: Piperacillin/Tazobactam 3.375 GM in 0.9 % Sodium Chloride Mini Bag 100 ML IVPB SCH ×3 (10:22→23:36)
[2020-10-11] MEDS ORDERED: Lidocaine -MPF 2% 2 ML VIAL ONE (12:36)
[2020-10-11 14:24] LABS: Basophils % 0.9 %; Eosinophils # 0.1 K/mcL (0.0-0.6); Eosinophils % 2.3 %; Immature Granulocytes % 0.2 % (0-4); Lymphocytes # 0.7 K/mcL (0.6-4.6); Lymphocytes % 15.1 %; Mean Corpuscular Hemoglobin 24.1 pg (28.0-33.3); Mean Corpuscular Volume 77.5 fL (83.0-100.0); Mean Platelet Volume 9.5 fL (9.4-12.4); Monocytes # 0.3 K/mcL (0.0-1.3); Monocytes % 7.7 %; Neutrophils # 3.2 K/mcL (1.6-8.9); Platelet Count 181 K/mcL (140-400); Red Blood Count 3.74 M/mcL (3.82-4.97); Red Cell Distribution Width 17.1 % (11.5-14.5); Segmented Neutrophils % 73.8 %; White Blood Count 4.3 K/mcL (4.3-11.1)
[2020-10-11 14:44] LABS: BUN/Creatinine Ratio 63 (6-26); Blood Urea Nitrogen 34 mg/dL (8-23); Calcium 8.2 mg/dL (8.6-10.3); Carbon Dioxide 21 mEq/L (23-29); Chloride 108 mEq/L (98-107); Glucose 65 mg/dL (70-105); Osmolality,Calculated 290 (280-300); Potassium 3.8 mEq/L (3.5-5.1); Sodium 137 mEq/L (136-145); eGFR For African Americans > 60 (> 60); eGFR For Non-African Americans > 60 (> 60)
[2020-10-11] MEDS ORDERED: Nitroglycerin 0.4 MG TAB.SUBL SL PRN (17:51)
[2020-10-11] MEDS ORDERED: lisinopriL 20 MG TABLET PO PRN (18:20)
[2020-10-11] MEDS ORDERED: Albumin 25% 25gram/100mL 25 GM/100 ML IV.SOLN IVPB ONE (19:33)
[2020-10-11] MEDS: Gabapentin 400 MG CAPSULE PO SCH (22:05)
[2020-10-11] MEDS: Mirtazapine 15 MG TABLET PO SCH (22:06)
[2020-10-11] MEDS: *HR* HYDROcodone/Acet 5/325 mg TABLET PO PRN (22:15)
[2020-10-11] MEDS: tiZANidine 4 MG TABLET PO PRN (23:36)
[2020-10-12 05:53] LABS: Basophils % 0.2 %; Eosinophils # 0.1 K/mcL (0.0-0.6); Eosinophils % 0.8 %; Hematocrit 29.6 % (35.3-44.9); Immature Granulocytes % 0.3 % (0-4); Lymphocytes # 0.1 K/mcL (0.6-4.6); Lymphocytes % 2.2 %; Mean Corpuscular HGB Conc 30.4 g/dL (31.6-35.5); Mean Corpuscular Hemoglobin 23.9 pg (28.0-33.3); Mean Corpuscular Volume 78.5 fL (83.0-100.0); Mean Platelet Volume 9.7 fL (9.4-12.4); Monocytes # 0.2 K/mcL (0.0-1.3); Monocytes % 2.5 %; Platelet Count 165 K/mcL (140-400); Red Blood Count 3.77 M/mcL (3.82-4.97); Red Cell Distribution Width 17.1 % (11.5-14.5); White Blood Count 6.4 K/mcL (4.3-11.1)
[2020-10-12 06:09] LABS: BUN/Creatinine Ratio 32 (6-26); Blood Urea Nitrogen 24 mg/dL (8-23); Calcium 8.7 mg/dL (8.6-10.3); Carbon Dioxide 21 mEq/L (23-29); Chloride 107 mEq/L (98-107); Glucose 102 mg/dL (70-105); Magnesium 1.7 mg/dL (1.6-2.6); Osmolality,Calculated 286 (280-300); Potassium 3.8 mEq/L (3.5-5.1); Sodium 136 mEq/L (136-145); eGFR For African Americans > 60 (> 60); eGFR For Non-African Americans > 60 (> 60)
[2020-10-12] MEDS ORDERED: Albumin 25% 25gram/100mL 25 GM/100 ML IV.SOLN IVPB ONE (06:10)
[2020-10-12] MEDS ORDERED: Ringers Solution, Lactated 1,000 ML IVC ONE (07:30)
[2020-10-12] MEDS: Piperacillin/Tazobactam 3.375 GM in 0.9 % Sodium Chloride Mini Bag 100 ML IVPB SCH ×3 (08:49→23:33)
[2020-10-12] MEDS: Gabapentin 400 MG CAPSULE PO SCH ×4 (08:51→21:47)
[2020-10-12] MEDS: ENTECAVIR 0.5 MG PO SCH (08:52)
[2020-10-12] MEDS: rOPINIRole 1 MG TABLET PO SCH ×2 (08:52→10:02)
[2020-10-12] MEDS: *HR* HYDROcodone/Acet 5/325 mg TABLET PO PRN ×2 (14:51→23:32)
[2020-10-12 15:25] LABS: Hepatitis B Surface Antigen Reactive (Nonreactive)
[2020-10-12] MEDS: Mirtazapine 15 MG TABLET PO SCH (21:47)
[2020-10-13 07:24] LABS: BUN/Creatinine Ratio 25 (6-26); Blood Urea Nitrogen 16 mg/dL (8-23); Calcium 8.5 mg/dL (8.6-10.3); Carbon Dioxide 23 mEq/L (23-29); Chloride 107 mEq/L (98-107); Glucose 93 mg/dL (70-105); Magnesium 1.7 mg/dL (1.6-2.6); Osmolality,Calculated 287 (280-300); Sodium 138 mEq/L (136-145); eGFR For African Americans > 60 (> 60); eGFR For Non-African Americans > 60 (> 60)
[2020-10-13] MEDS: rOPINIRole 1 MG TABLET PO SCH (09:21)
[2020-10-13] MEDS: Metoprolol XL (24 HR) Succ 25 MG TAB.ER.24H PO SCH (09:22)
[2020-10-13] MEDS: Gabapentin 400 MG CAPSULE PO SCH ×3 (09:23→20:40)
[2020-10-13] MEDS: *HR* HYDROcodone/Acet 5/325 mg TABLET PO PRN ×3 (09:28→20:40)
[2020-10-13] MEDS: Piperacillin/Tazobactam 3.375 GM in 0.9 % Sodium Chloride Mini Bag 100 ML IVPB SCH (09:39)
[2020-10-13] MEDS: ENTECAVIR 0.5 MG PO SCH (12:45)
[2020-10-13 12:50] LABS: Basophils % 0.3 %; Eosinophils # 0.2 K/mcL (0.0-0.6); Eosinophils % 4.8 %; Hematocrit 27.1 % (35.3-44.9); Hemoglobin 8.4 g/dL (11.5-15.4); Immature Granulocytes % 0.6 % (0-4); Lymphocytes # 0.2 K/mcL (0.6-4.6); Lymphocytes % 6.5 %; Mean Corpuscular Hemoglobin 24.3 pg (28.0-33.3); Mean Corpuscular Volume 78.3 fL (83.0-100.0); Mean Platelet Volume 10.8 fL (9.4-12.4); Monocytes # 0.2 K/mcL (0.0-1.3); Monocytes % 5.3 %; Platelet Count 134 K/mcL (140-400); Red Blood Count 3.46 M/mcL (3.82-4.97); Red Cell Distribution Width 17.2 % (11.5-14.5); Segmented Neutrophils % 82.5 %; White Blood Count 3.6 K/mcL (4.3-11.1)
[2020-10-13] MEDS: clonazePAM 1 MG TABLET PO PRN ×2 (14:47→20:50)
[2020-10-13 18:49] LABS: Anisocytosis 1+ (Not Present); Platelet Estimate Slight Decrease (Normal)
[2020-10-13] MEDS: hydrOXYzine pamoate 25 MG CAPSULE PO PRN (20:39)
[2020-10-13] MEDS: Mirtazapine 15 MG TABLET PO SCH (20:39)
[2020-10-13] MEDS: *HR* LORazepam 2 MG/ML VIAL IVP PRN (20:41)
[2020-10-14 03:03] LABS: Basophils % 0.3 %; Eosinophils # 0.2 K/mcL (0.0-0.6); Eosinophils % 7.4 %; Hematocrit 26.9 % (35.3-44.9); Hemoglobin 8.3 g/dL (11.5-15.4); Immature Granulocytes % 0.3 % (0-4); Lymphocytes # 0.5 K/mcL (0.6-4.6); Lymphocytes % 16.1 %; Mean Corpuscular HGB Conc 30.9 g/dL (31.6-35.5); Mean Corpuscular Hemoglobin 24.3 pg (28.0-33.3); Mean Corpuscular Volume 78.7 fL (83.0-100.0); Mean Platelet Volume 10.4 fL (9.4-12.4); Monocytes # 0.3 K/mcL (0.0-1.3); Monocytes % 8.7 %; Neutrophils # 2.1 K/mcL (1.6-8.9); Platelet Count 115 K/mcL (140-400); Red Blood Count 3.42 M/mcL (3.82-4.97); Segmented Neutrophils % 67.2 %; White Blood Count 3.1 K/mcL (4.3-11.1)
[2020-10-14 03:20] LABS: BUN/Creatinine Ratio 13 (6-26); Blood Urea Nitrogen 8 mg/dL (8-23); Calcium 8.3 mg/dL (8.6-10.3); Carbon Dioxide 24 mEq/L (23-29); Chloride 111 mEq/L (98-107); Glucose 115 mg/dL (70-105); Magnesium 1.9 mg/dL (1.6-2.6); Osmolality,Calculated 291 (280-300); Potassium 3.5 mEq/L (3.5-5.1); Sodium 141 mEq/L (136-145); eGFR For African Americans > 60 (> 60); eGFR For Non-African Americans > 60 (> 60)
[2020-10-14 03:34] LABS: Platelet Estimate Normal (Normal); Reactive Lymphocytes Present (Not Present)
[2020-10-14] MEDS: *HR* HYDROcodone/Acet 5/325 mg TABLET PO PRN ×3 (04:13→21:21)
[2020-10-14] MEDS: clonazePAM 1 MG TABLET PO PRN ×3 (04:18→21:25)
[2020-10-14] MEDS: *HR* LORazepam 2 MG/ML VIAL IVP PRN (05:49)
[2020-10-14] MEDS: ENTECAVIR 0.5 MG PO SCH (11:20)
[2020-10-14] MEDS: Metoprolol XL (24 HR) Succ 25 MG TAB.ER.24H PO SCH (11:21)
[2020-10-14] MEDS: Gabapentin 400 MG CAPSULE PO SCH ×3 (11:32→21:20)
[2020-10-14] MEDS: rOPINIRole 1 MG TABLET PO SCH (11:32)
[2020-10-14] MEDS: Ondansetron 4 MG/2 ML VIAL IVP PRN (16:51)
[2020-10-14] MEDS: Mirtazapine 15 MG TABLET PO SCH (21:20)
[2020-10-14] MEDS: tiZANidine 4 MG TABLET PO PRN (21:25)
[2020-10-14] MEDS: hydrOXYzine pamoate 25 MG CAPSULE PO PRN (21:25)
[2020-10-15 02:37] LABS: Basophils % 0.3 %; Eosinophils # 0.2 K/mcL (0.0-0.6); Eosinophils % 4.2 %; Hemoglobin 8.3 g/dL (11.5-15.4); Immature Granulocytes % 0.3 % (0-4); Lymphocytes # 0.8 K/mcL (0.6-4.6); Lymphocytes % 22.8 %; Mean Corpuscular HGB Conc 30.7 g/dL (31.6-35.5); Mean Corpuscular Hemoglobin 24.6 pg (28.0-33.3); Mean Corpuscular Volume 80.1 fL (83.0-100.0); Mean Platelet Volume 10.7 fL (9.4-12.4); Monocytes # 0.4 K/mcL (0.0-1.3); Monocytes % 9.7 %; Neutrophils # 2.3 K/mcL (1.6-8.9); Platelet Count 121 K/mcL (140-400); Red Blood Count 3.37 M/mcL (3.82-4.97); Segmented Neutrophils % 62.7 %; White Blood Count 3.6 K/mcL (4.3-11.1)
[2020-10-15 02:56] LABS: BUN/Creatinine Ratio 15 (6-26); Blood Urea Nitrogen 8 mg/dL (8-23); Calcium 8.6 mg/dL (8.6-10.3); Carbon Dioxide 22 mEq/L (23-29); Chloride 109 mEq/L (98-107); Glucose 137 mg/dL (70-105); Magnesium 1.7 mg/dL (1.6-2.6); Osmolality,Calculated 288 (280-300); Potassium 3.4 mEq/L (3.5-5.1); Sodium 139 mEq/L (136-145); eGFR For African Americans > 60 (> 60); eGFR For Non-African Americans > 60 (> 60)
[2020-10-15 03:01] LABS: Anisocytosis 1+ (Not Present); Hypochromasia Present (Not Present); Platelet Estimate Normal (Normal)
[2020-10-15] MEDS: rOPINIRole 1 MG TABLET PO SCH (09:26)
[2020-10-15] MEDS: Gabapentin 400 MG CAPSULE PO SCH ×3 (09:27→20:59)
[2020-10-15] MEDS: Metoprolol XL (24 HR) Succ 25 MG TAB.ER.24H PO SCH (09:28)
[2020-10-15] MEDS: ENTECAVIR 0.5 MG PO SCH (09:29)
[2020-10-15] MEDS: *HR* HYDROcodone/Acet 5/325 mg TABLET PO PRN ×3 (09:30→22:40)
[2020-10-15] MEDS: clonazePAM 1 MG TABLET PO PRN ×2 (13:56→22:41)
[2020-10-15] MEDS ORDERED: *HR* Labetalol 20 MG/4 ML SYRINGE IVP ONE (19:50)
[2020-10-15] MEDS: hydrOXYzine pamoate 25 MG CAPSULE PO PRN (20:59)
[2020-10-15] MEDS: Acetaminophen 325 MG TABLET PO PRN (20:59)
[2020-10-15] MEDS: Mirtazapine 15 MG TABLET PO SCH (20:59)
[2020-10-16] MEDS: *HR* HYDROcodone/Acet 5/325 mg TABLET PO PRN ×3 (05:30→18:16)
[2020-10-16] MEDS: Metoprolol XL (24 HR) Succ 25 MG TAB.ER.24H PO SCH (08:25)
[2020-10-16] MEDS: rOPINIRole 1 MG TABLET PO SCH (08:26)
[2020-10-16] MEDS: Gabapentin 400 MG CAPSULE PO SCH ×3 (08:27→20:39)
[2020-10-16] MEDS: ENTECAVIR 0.5 MG PO SCH (08:31)
[2020-10-16] MEDS: clonazePAM 1 MG TABLET PO PRN ×2 (12:01→20:39)
[2020-10-16] MEDS: Ondansetron 4 MG/2 ML VIAL IVP PRN (12:03)
[2020-10-16] MEDS ORDERED: Azithromycin 250 MG TABLET PO ONE (12:11)
[2020-10-16] MEDS: Sennosides 8.6 MG TABLET PO SCH (17:26)
[2020-10-16] MEDS: Mirtazapine 15 MG TABLET PO SCH (20:38)
[2020-10-16] MEDS: Aspirin Enteric Coated 81 MG Tablet PO SCH (20:41)
[2020-10-17 02:21] LABS: BUN/Creatinine Ratio 26 (6-26); Blood Urea Nitrogen 15 mg/dL (8-23); Calcium 8.6 mg/dL (8.6-10.3); Carbon Dioxide 27 mEq/L (23-29); Chloride 109 mEq/L (98-107); Glucose 103 mg/dL (70-105); Osmolality,Calculated 293 (280-300); Potassium 3.9 mEq/L (3.5-5.1); Sodium 141 mEq/L (136-145); eGFR For African Americans > 60 (> 60); eGFR For Non-African Americans > 60 (> 60)
[2020-10-17] MEDS: *HR* HYDROcodone/Acet 5/325 mg TABLET PO PRN (02:44)
[2020-10-17] MEDS ORDERED: *HR* Promethazine 25 MG/ML VIAL IM PRN (05:21)
[2020-10-17] MEDS ORDERED: *HR* HYDROcodone/Acet 5/325 mg TABLET PO PRN (05:23)
[2020-10-17] MEDS: clonazePAM 1 MG TABLET PO PRN ×2 (05:43→14:18)
[2020-10-17 07:04] VITALS: TEMP 98
[2020-10-17 08:18] LABS: Hematocrit 27.5 % (35.3-44.9); Hemoglobin 8.3 g/dL (11.5-15.4)
[2020-10-17] MEDS: Metoprolol XL (24 HR) Succ 25 MG TAB.ER.24H PO SCH (09:23)
[2020-10-17] MEDS: Gabapentin 400 MG CAPSULE PO SCH (09:24)
[2020-10-17] MEDS: rOPINIRole 1 MG TABLET PO SCH (09:24)
[2020-10-17] MEDS: ENTECAVIR 0.5 MG PO SCH (09:24)
[2020-10-17] MEDS: Sennosides 8.6 MG TABLET PO SCH (09:24)
[2020-10-17] MEDS: Aspirin Enteric Coated 81 MG Tablet PO SCH (09:25)
[2020-10-17] MEDS ORDERED: Azithromycin 250 MG TABLET PO SCH (12:15)
[2020-10-17 14:47] VITALS: BP 106/72; PULSE 79; O2SAT 94
== END 2020-10-17 15:20 | disposition home or self-care (01) | DRG 368 ==
LOC: 3ANU → SUATTDRO 22:42
PROVIDERS: ADMIT Internal Medicine; ATTEND Internal Medicine
PROC: ENDOEBX (2020-10-11 11:25)